=== PATIENT | male | born 1945 | race Caucasian/White ===

== ENCOUNTER 2018-09-28 08:48 | Inpatient (IN) | payer MEDICARE ==
[2018-09-28] MEDS ORDERED: HEPARIN SODIUM,PORCINE 10,000 UNIT/ML 1 ML VIAL IV STA (09:16)
[2018-09-28] MEDS ORDERED: IPRATROPIUM-ALBUTEROL 3 ML NEB INHALATION STA ×2 (09:16→09:19)
[2018-09-28] MEDS ORDERED: HEPARIN SOD,PORK IN 0.45% NACL 25,000 UNIT in 0.45% NACL 1 250ML.BAG IV SCH ×2 (09:30→11:30)
--- NOTE | 2018-09-28 09:43 | ED ---
SOB HPI - General Chief Complaint: Shortness of Breath Stated Complaint: Diff Breathing Time Seen by Provider: 09/28/18 08:59 Source: patient, RN notes reviewed Mode of arrival: wheelchair Limitations: no limitations - History of Present Illness Initial Comments: This is a 72-year-old male with a history of anxiety who states he had the onset 3 days ago after playing golf of not feeling quite right. He started developing exertional dyspnea no palpitations no fevers chills nausea vomiting sweats or other symptoms no peripheral edema reported. He does state that he said recently had a upper respiratory/sinus infection but that has resolved he did see a physician recently was given anti-anxiety medications or not really help he states he also states she's been under a lot of stress recently no other modifying factors he is a former smoker but has never been diagnosed with asthma or COPD. MD Complaint: shortness of breath, anxiety - Related Data Home Medications Medication Instructions Recorded Confirmed Simvastatin [Zocor] 10 mg PO DAILY 04/13/16 09/28/18 ALPRAZolam [Xanax] 0.25 mg PO DAILY 09/28/18 09/28/18 Citalopram Hydrobromide [CeleXA] 20 mg PO DAILY 09/28/18 09/28/18 Melatonin 5 mg PO HS 09/28/18 09/28/18 Allergies Allergy/AdvReac Type Severity Reaction Status Date / Time No Known Allergies Allergy Verified 09/28/18 09:37 Review of Systems ROS Statement: Those systems with pertinent positive or pertinent negative responses have been documented in the HPI. ROS Other: All systems not noted in ROS Statement are negative. Past Medical History Past Medical History: Hyperlipidemia Additional Past Medical History / Comment(s): Prior GIB post colonoscopy and hx of polyps. History of Any Multi-Drug Resistant Organisms: None Reported Past Surgical History: Hernia Repair, Orthopedic Surgery Additional Past Surgical History / Comment(s): Right knee scope x 2, umbilical hernia repair, kinjal cataract. Past Anesthesia/Blood Transfusion Reactions: No Reported Reaction Past Psychological History: No Psychological Hx Reported Smoking Status: Former smoker Past Alcohol Use History: Daily Past Drug Use History: None Reported - Past Family History Mother Family Medical History: No Reported History General Exam - General Exam Comments Initial Comments: This is a well-developed well-nourished awake alert oriented 3 male Limitations: no limitations General appearance: alert, in no apparent distress Head exam: Present: atraumatic, normocephalic, normal inspection Eye exam: Present: normal appearance, PERRL, EOMI. Absent: scleral icterus, conjunctival injection, periorbital swelling ENT exam: Present: normal exam, mucous membranes moist Neck exam: Present: normal inspection. Absent: tenderness, meningismus, lympha denopathy Respiratory exam: Present: rales, decreased breath sounds. Absent: respiratory distress, wheezes, rhonchi, stridor Cardiovascular Exam: Present: tachycardia, irregular rhythm. Absent: systolic murmur, diastolic murmur, rubs, gallop, clicks GI/Abdominal exam: Present: soft, normal bowel sounds. Absent: distended, tenderness, guarding, rebound, rigid Extremities exam: Present: normal inspection, full ROM, normal capillary refill. Absent: tenderness, pedal edema, joint swelling, calf tenderness Back exam: Present: normal inspection Neurological exam: Present: alert, oriented X3, CN II-XII intact Psychiatric exam: Present: normal affect, normal mood Skin exam: Present: warm, dry, intact, normal color. Absent: rash Course Vital Signs 09/28/18 09/28/18 09/28/18 08:53 09:10 09:20 Temperature 98.6 F Pulse Rate 118 H 137 H 152 H Respiratory 18 20 19 Rate Blood Pressure 119/81 O2 Sat by Pulse 94 L 94 L 96 Oximetry 09/28/18 09/28/18 09/28/18 09:30 09:40 09:50 Temperature Pulse Rate 142 H 140 H 144 H Respiratory 23 21 24 Rate Blood Pressure O2 Sat by Pulse 94 L 95 95 Oximetry 09/28/18 09/28/18 09/28/18 10:04 10:25 11:42 Temperature Pulse Rate 144 H 151 H 140 H Respiratory 18 Rate Blood Pressure 118/92 O2 Sat by Pulse 96 Oximetry - Reevaluation(s) Reevaluation #1: 09/28/18 12:21 Patient did get some improvement in his breathing after the DuoNeb was given. Reevaluation #2: 09/28/18 12:22 cardiac monitor technician: Indication for dysrhythmia. Patient noted be atrial fibrill ation with a rapid ventricular response rate 162 was a max today witnessed. No PVCs on my first evaluation Medical Decision Making - Lab Data Result diagrams: 09/28/18 09:15 05/18/19 09:15 Lab Results 09/28/18 09/28/18 09/28/18 Range/Units 09:15 09:15 09:15 WBC 10.2 (3.8-10.6) k/uL RBC 5.03 (4.30-5.90) m/uL Hgb 15.5 (13.0-17.5) gm/dL Hct 47.7 (39.0-53.0) % MCV 94.9 (80.0-100.0) fL MCH 30.9 (25.0-35.0) pg MCHC 32.6 (31.0-37.0) g/dL RDW 14.3 (11.5-15.5) % Plt Count 229 (150-450) k/uL Neutrophils % 84 % Lymphocytes % 7 % Monocytes % 6 % Eosinophils % 1 % Basophils % 0 % Neutrophils # 8.6 H (1.3-7.7) k/uL Lymphocytes # 0.7 L (1.0-4.8) k/uL Monocytes # 0.6 (0-1.0) k/uL Eosinophils # 0.1 (0-0.7) k/uL Basophils # 0.0 (0-0.2) k/uL PT 11.1 (9.0-12.0) sec INR 1.1 (<1.2) APTT 33.3 H (22.0-30.0) sec D-Dimer 1.19 H (<0.60) mg/L FEU Sodium 139 (137-145) mmol/L Potassium 4.4 (3.5-5.1) mmol/L Chloride 108 H (98-107) mmol/L Carbon Dioxide 20 L (22-30) mmol/L Anion Gap 11 mmol/L BUN 14 (9-20) mg/dL Creatinine 0.81 (0.66-1.25) mg/dL Est GFR (CKD-EPI)AfAm >90 (>60 ml/min/1.73 sqM) Est GFR (CKD-EPI)NonAf 89 (>60 ml/min/1.73 sqM) Glucose 226 H (74-99) mg/dL Calcium 9.1 (8.4-10.2) mg/dL Magnesium 1.8 (1.6-2.3) mg/dL Total Bilirubin 1.0 (0.2-1.3) mg/dL AST 31 (17-59) U/L ALT 81 H (21-72) U/L Alkaline Phosphatase 64 (38-126) U/L Creatine Kinase 104 (55-170) U/L Troponin I (0.000-0.034) ng/mL NT-Pro-B Natriuret Pep pg/mL Total Protein 6.4 (6.3-8.2) g/dL Albumin 4.0 (3.5-5.0) g/dL 09/28/18 09/28/18 Range/Units 09:15 09:15 WBC (3.8-10.6) k/uL RBC (4.30-5.90) m/uL Hgb (13.0-17.5) gm/dL Hct (39.0-53.0) % MCV (80.0-100.0) fL MCH (25.0-35.0) pg MCHC (31.0-37.0) g/dL RDW (11.5-15.5) % Plt Count (150-450) k/uL Neutrophils % % Lymphocytes % % Monocytes % % Eosinophils % % Basophils % % Neutrophils # (1.3-7.7) k/uL Lymphocytes # (1.0-4.8) k/uL Monocytes # (0-1.0) k/uL Eosinophils # (0-0.7) k/uL Basophils # (0-0.2) k/uL PT (9.0-12.0) sec INR (<1.2) APTT (22.0-30.0) sec D-Dimer (<0.60) mg/L FEU Sodium (137-145) mmol/L Potassium (3.5-5.1) mmol/L Chloride (98-107) mmol/L Carbon Dioxide (22-30) mmol/L Anion Gap mmol/L BUN (9-20) mg/dL Creatinine (0.66-1.25) mg/dL Est GFR (CKD-EPI)AfAm (>60 ml/min/1.73 sqM) Est GFR (CKD-EPI)NonAf (>60 ml/min/1.73 sqM) Glucose (74-99) mg/dL Calcium (8.4-10.2) mg/dL Magnesium (1.6-2.3) mg/dL Total Bilirubin (0.2-1.3) mg/dL AST (17-59) U/L ALT (21-72) U/L Alkaline Phosphatase (38-126) U/L Creatine Kinase (55-170) U/L Troponin I 0.022 (0.000-0.034) ng/mL NT-Pro-B Natriuret Pep 1510 pg/mL Total Protein (6.3-8.2) g/dL Albumin (3.5-5.0) g/dL - EKG Data -: EKG Interpreted by Me (Atrial fibrillation with a response rate of 1:30 QRS 90 QT since QTC 3:304) - Radiology Data Radiology results: report reviewed (Imaging showed evidence of small pleural effusions and congestive changes.), image reviewed Critical Care Time Critical Care Time: Yes Critical Care Time: 37 minutes of critical care time which includes initial presentation with his tory physical labs x-rays several reevaluation patient responsive therapy discuss with the patient and the findings discussed with Dr. Anderson regarding findings admission orders and documentation of the above Disposition Clinical Impression: Rapid atrial fibrillation, Acute bronchospasm, Pleural effusion, Congestive heart failure (CHF) Disposition: ADMITTED IP TO THIS [facility] Condition: Stable Referrals: Howard Rojas MD [Primary Care Provider] - 1-2 days
--- NOTE | 2018-09-28 09:51 | XR ---
EXAMINATION TYPE: XR chest 2V DATE OF EXAM: 09/28/2018 HISTORY: difficulty breathing. REFERENCE: Previous study dated 04/10/2012. FINDINGS: Lung volumes are prominent. Heart size upper limits of normal. There is blunting of both CP angles. I could not exclude small effusions. I do not see evidence of pneumonia or edema. IMPRESSION: 1. COPD. 2. BORDERLINE CARDIOMEGALY. 3. I COULD NOT EXCLUDE TINY, BILATERAL EFFUSIONS.
[2018-09-28 10:14] LABS: Basophils % (A) 0 %; Eosinophils # (A) 0.1 k/uL (0-0.7); Eosinophils % (A) 1 %; HCT 47.7 % (39.0-53.0); HGB 15.5 gm/dL (13.0-17.5); Lymphocytes # (A) 0.7 k/uL (1.0-4.8); Lymphocytes % (A) 7 %; MCH 30.9 pg (25.0-35.0); MCHC 32.6 g/dL (31.0-37.0); MCV 94.9 fL (80.0-100.0); Mean Platelet Volume 7.9; Monocytes # (A) 0.6 k/uL (0-1.0); Monocytes % (A) 6 %; Neutrophils # (A) 8.6 k/uL (1.3-7.7); Neutrophils % (A) 84 %; Platelet Count 229 k/uL (150-450); RBC 5.03 m/uL (4.30-5.90); RDW 14.3 % (11.5-15.5); WBC 10.2 k/uL (3.8-10.6)
[2018-09-28 10:18] LABS: ALT 81 U/L (21-72); AST 31 U/L (17-59); Alkaline Phosphatase 64 U/L (38-126); Anion Gap 11 mmol/L; Blood Urea Nitrogen 14 mg/dL (9-20); Calcium 9.1 mg/dL (8.4-10.2); Carbon Dioxide 20 mmol/L (22-30); Chloride 108 mmol/L (98-107); Creatine Kinase 104 U/L (55-170); Glucose 226 mg/dL (74-99); Magnesium 1.8 mg/dL (1.6-2.3); Potassium 4.4 mmol/L (3.5-5.1); Sodium 139 mmol/L (137-145); Total Protein 6.4 g/dL (6.3-8.2)
[2018-09-28 10:22] LABS: INR 1.1 (<1.2); Partial Thromboplastin Time 33.3 sec (22.0-30.0); Prothrombin Time 11.1 sec (9.0-12.0)
[2018-09-28 10:54] LABS: D-Dimer 1.19 mg/L FEU (<0.60)
--- NOTE | 2018-09-28 11:52 | CT ---
EXAMINATION TYPE: CT angio chest DATE OF EXAM: 09/28/2018 11:32 AM COMPARISON: None. HISTORY: Difficulty breathing. CT DLP: 440.5 mGycm Automated exposure control for dose reduction was used. CONTRAST: CTA scan of the thorax is performed with IV Contrast, patient injected with 81ml mL of Isovue 370, pu lmonary embolism protocol. . FINDINGS: There are bilateral effusions, greater on the right than the left. There is associated rela xation atelectasis present bilaterally. There is no significant axillary, internal mammary, is down hilar lymphadenopathy. There is some mediastinal fluid of uncertain etiology. There is no evidence of pulmonary embolus. The aorta is normal in caliber. The heart is mildly enlarged. There is no pericardial fluid. Visualized portions of the upper abdomen are unremarkable. There is hypertrophic spondylosis within the dorsal spine. IMPRESSION: 1. THIS EXAMINATION IS NEGATIVE FOR PULMONARY EMBOLUS. 2. MODERATE BILATERAL EFFUSIONS, GREATER ON THE RIGHT THAN THE LEFT. 3. SMALL AMOUNT OF MEDIASTINAL FLUID OF UNCERTAIN ETIOLOGY. 4. DEGENERATIVE CHANGES WITHIN THE SPINE.
[2018-09-28] MEDS ORDERED: FUROSEMIDE 10 MG/ML 4 ML VIAL IV STA (12:30)
[2018-09-28] MEDS ORDERED: FUROSEMIDE 10 MG/ML 4 ML VIAL IV SCH (12:30)
[2018-09-28] MEDS ORDERED: DILTIAZEM DRIP BOLUS FROM BAG 1 MG SOLN IV ONE (12:31)
[2018-09-28] MEDS: DILTIAZEM 125 MG in SODIUM CHLORIDE 0.9% 100 ML IV SCH (13:19)
[2018-09-28] MEDS: IPRATROPIUM-ALBUTEROL 3 ML NEB INHALATION SCH ×2 (15:21→19:50)
[2018-09-28] MEDS: INSULIN ASPART (NovoLOG) 100 UNIT/ML VIAL SQ SCH ×2 (18:09→21:21)
[2018-09-28] MEDS: RIVAROXABAN 20 MG TAB PO SCH (18:17)
--- NOTE | 2018-09-28 18:57 | HP ---
HISTORY AND PHYSICAL DATE OF ADMISSION: 09/28/2018 PRESENTING COMPLAINT: Short of breath. HISTORY OF PRESENTING COMPLAINT: A very pleasant 72-year-old patient of Dr. Rojas. Chronic stable medical conditions include hyperlipidemia, depression, anxiety, insomnia. The patient thinks he has been short winded for a few days coming on, but noticed that he was playing golf on Sunday. He was on the 2nd hole. He felt he could not catch his breath. He told his golf partner he wanted to hold off but they decided to continue. He was able to complete his game. That night he was not able to sleep, really tossing, turning in bed. Progressively he has continued to get more and more short of breath. Also felt some palpitation, dizzy, lightheadedness. The patient is also very anxious because his has got pulmonary fibrosis and he is dealing with the same and decided to finally present to the ER. There was no chest pain. Some ankle edema. The patient has been getting easily short-winded. Some orthopnea present. In the ER, found to be in atrial fibrillation, rapid ventricular rate. Given IV Lasix. Put on a Cardizem drip. Cardiology was consulted. No prior cardiac history. REVIEW OF SYSTEMS: CONSTITUTIONAL: Tired. HEENT: None. RESPIRATORY: As above. CARDIOVASCULAR as above. GASTROINTESTINAL: None. GENITOURINARY: None. MUSCULOSKELETAL: None. DERMATOLOGICAL: None. HEMATOLOGICAL: None. LYMPHATICS: None. PSYCHIATRY none. NEUROLOGICAL: None. PAST MEDICAL HISTORY: Depression, anxiety, insomnia, hyperlipidemia. PAST SURGICAL HISTORY: Hernia repair, right knee scope x2, umbilical hernia repair, bilateral cataract surgery. SOCIAL HISTORY: Smoked a pack a day for close to 40 years, stopped 14 years ago. Has 2 drinks a day. The patient is now retired. 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 . FAMILY HISTORY: Reviewed. Noncontributory to presentation. HOME MEDICATIONS: 1. Zocor 10 mg daily. 2. Melatonin 5 mg q.h.s. 3. Celexa 20 mg p.o. daily. 4. Xanax 0.25 p.o. daily. ALLERGIES: None. PHYSICAL EXAMINATION: VITAL SIGNS: Vital signs on presentation: Temperature 98.6, pulse 118, respiration 18, blood pressure 109/81, pulse ox 94 percent on room air. GENERAL APPEARANCE: Average build, lying in bed. Anxious-appearing. EYES: Pupils are equal. Conjunctivae normal. HEENT: External appearance of nose and ears normal. Oral cavity normal. NECK: JVD unable to assess. Mass not palpable. RESPIRATORY: Effort increased. LUNGS: Decreased breath sounds at the bases. CARDIOVASCULAR: Heart sounds irregular. No edema. ABDOMEN: Soft, nontender. Liver and spleen not palpable. LYMPHATICS: No lymph nodes palpable in the neck and axilla. PSYCHIATRY: Alert and oriented x3. Mood and affect normal. NEUROLOGICAL: Pupils equal. Cranial nerves grossly intact. Power and sensation grossly intact. INVESTIGATIONS: White count 10.2. Potassium 4.4. BUN and creatinine is normal. ProBNP 1510. EKG tracing personally reviewed by me shows atrial flutter with a variable rate. Chest CTA negative for PE, moderate bilateral pleural effusions. Chest x-ray film personally reviewed by me shows cardiomegaly, venous prominence, bilateral pleural effusion. ASSESSMENT: 1. New onset of atrial flutter with a rate uncontrolled causing secondary congestive heart failure. 2. Acute congestive heart failure, possibly presented with rapid atrial fibrillation, cannot rule out underlying LV dysfunction. 3. Hyperlipidemia. 4. Chronic insomnia. 5. Anxiety and depression, not otherwise specified. PLAN: Patient is put on IV Cardizem drip from the ER. Also Dr. Esquivel did add beta asia and aspirin. 2D echocardiogram done. Care was discussed with the patient. Questions were answered. Copy to Dr. Rojas. MMODL / CARRINGTONN: [id number] /
[2018-09-28] MEDS: METOPROLOL TARTRATE 25 MG TAB PO SCH (19:39)
[2018-09-28] MEDS: MELATONIN 5 MG TABLET PO SCH (19:39)
[2018-09-28] MEDS: FUROSEMIDE 10 MG/ML 4 ML VIAL IV SCH (19:40)
--- NOTE | 2018-09-28 19:42 | CONS ---
CONSULTATION Mr. Negron is a 72-year-old male followed by Dr. Rojas with a history of hyperlipidemia, who presented to the emergency room with symptoms of progressive fatigue and dyspnea that had been going on for the last 3 days. He noted the symptoms the first time when he was playing golf, but they persisted and because of that he came into the emergency room. He was noted to be in atrial fibrillation with rapid ventricular response. The patient did not feel the palpitation. He has no chest pain. He has no dizziness or syncope. He has noted some peripheral edema. No clear PND. No orthopnea. He has no prior cardiac history. His coronary risk factors are remarkable for remote history of smoking, hyperlipidemia. He is not hypertensive, nondiabetic. MEDICATIONS: His medications include simvastatin 10 mg daily, Melatonin, Celexa and Zantac. SOCIAL HISTORY: He drinks alcohol on a daily basis. REVIEW OF SYSTEMS: RESPIRATORY system: He has the dyspnea on exertion. No recent wheezing or cough. GI system: No recent GI bleeding. No peptic ulcer disease. system: No dysuria or hematuria. NERVOUS SYSTEM: No stroke or seizure. PHYSICAL EXAMINATION: GENERAL: He is a 72-year-old male, alert, oriented, in no apparent distress. VITAL SIGNS: Blood pressure 118/60 with a heart rate in the 120s. HEAD: Normocephalic. Eyes: Sclerae nonicteric. NECK: Good upstroke. No bruit. No jugular venous distention. LUNGS: Clear to auscultation. HEART: Irregularly irregular, S1, S2. No S3. No rub. ABDOMEN: Soft, nontender. Positive bowel sounds no megaly. EXTREMITIES: +1 edema bilaterally. LAB DATA: With a BUN and creatinine of 14 and 0.8. NT proBNP of 1510. Troponin 0.022. Hemoglobin of 15.5. The EKG revealed atrial fibrillation with rapid ventricular response and nonspecific ST-T wave changes. His chest x-ray shows effusion that were documented on the CT scan. There was no evidence of pulmonary embolism. IMPRESSION: 1. Atrial fibrillation, appears to be new onset are with symptoms of dyspnea and possible congestive heart failure of unclear systolic function. 2. History of hyperlipidemia. RECOMMENDATION: I will start him on oral anticoagulation. I will obtain echocardiogram with Doppler. I will add beta asia to his regimen. We will continue on the diuretics. Follow his cardiac enzymes and depending on his response, further recommendations will be made. Thank you for this consult. We will follow with you. MMODL / IJN: [id number] /
[2018-09-28 20:29] LABS: Hemoglobin A1C 5.8 % (4.0-6.0)
[2018-09-28 20:46] LABS: Glucose,Whole Blood 160 mg/dL (75-99)
[2018-09-29 05:54] LABS: Glucose,Whole Blood 128 mg/dL (75-99)
[2018-09-29] MEDS: INSULIN ASPART (NovoLOG) 100 UNIT/ML VIAL SQ SCH ×4 (05:55→20:57)
[2018-09-29 07:14] LABS: Basophils # (A) 0.1 k/uL (0-0.2); Basophils % (A) 1 %; Eosinophils # (A) 0.2 k/uL (0-0.7); Eosinophils % (A) 3 %; HCT 44.2 % (39.0-53.0); HGB 14.2 gm/dL (13.0-17.5); Lymphocytes # (A) 1.1 k/uL (1.0-4.8); Lymphocytes % (A) 15 %; MCH 30.7 pg (25.0-35.0); MCHC 32.2 g/dL (31.0-37.0); MCV 95.3 fL (80.0-100.0); Mean Platelet Volume 7.4; Monocytes # (A) 0.5 k/uL (0-1.0); Monocytes % (A) 7 %; Neutrophils # (A) 5.3 k/uL (1.3-7.7); Neutrophils % (A) 72 %; Platelet Count 194 k/uL (150-450); RBC 4.63 m/uL (4.30-5.90); RDW 14.3 % (11.5-15.5); WBC 7.4 k/uL (3.8-10.6)
[2018-09-29 07:28] LABS: Calcium 8.8 mg/dL (8.4-10.2); Potassium 3.7 mmol/L (3.5-5.1)
[2018-09-29] MEDS: ALPRAZolam 0.25 MG TAB PO SCH (08:33)
[2018-09-29] MEDS: ATORVASTATIN 10 MG TAB PO SCH (08:34)
[2018-09-29] MEDS: CITALOPRAM HYDROBROMIDE 20 MG TAB PO SCH (08:34)
[2018-09-29] MEDS: METOPROLOL TARTRATE 25 MG TAB PO SCH (08:34)
[2018-09-29] MEDS: FUROSEMIDE 10 MG/ML 4 ML VIAL IV SCH (08:35)
[2018-09-29] MEDS: IPRATROPIUM-ALBUTEROL 3 ML NEB INHALATION SCH ×3 (08:52→20:10)
--- NOTE | 2018-09-29 11:35 | PN ---
PROGRESS NOTE Mr. Negron is a 72-year-old male who presented with symptoms of progressive dyspnea and fatigue, was noted to be in atrial fibrillation with rapid ventricular response. He is feeling better today, but he still feels tired. He has no chest pain. No dizziness. No passing out. He continues to be in atrial fibrillation with episode of rapid ventricular response. He continues to be on Xarelto 20 mg daily, metoprolol tartrate 25 mg twice a day, Lasix 40 mg IV q.12 hours. PHYSICAL EXAMINATION: Blood pressure 114/70 with a heart rate alternating between the 60s and the one teens. LUNGS: Clear. HEART: Irregularly irregular, S1, S2. No S3 with no rub. ABDOMEN: Soft, nontender. EXTREMITIES: No edema. LAB DATA: Lab data revealed BUN and creatinine 14 and 1.01, potassium 3.7, hemoglobin of 14.2. IMPRESSION: 1. Atrial fibrillation, appears to be recent onset. 2. Symptoms of dyspnea with some fluid overload, probably diastolic dysfunction heart failure related to the atrial fibrillation. 3. Hyperlipidemia. RECOMMENDATION: I will increase the dose of beta asia. Stop the IV Lasix. We will obtain echocardiogram with Doppler. Increase his activity. If he remains stable, he may be able to be discharged home tomorrow. If he remains in atrial fibrillation, then he will be admitted electively to undergo cardioversion. ANGE / CARRINGTONN: [id number] /
[2018-09-29 12:02] LABS: Glucose,Whole Blood 125 mg/dL (75-99)
[2018-09-29] MEDS ORDERED: ASPIRIN 325 MG TAB PO SCH (12:29)
--- NOTE | 2018-09-29 13:54 | ECHOF ---
Referral Reason:afib MEASUREMENTS -------- HEIGHT: 182.9 cm WEIGHT: 90.3 kg BP: 114/75 RVIDd: 3.3 cm (< 3.3) IVSd: 1.1 cm (0.6 - 1.1) LVIDd: 5.8 cm (3.9 - 5.3) LVPWd: 1.2 cm (0.6 - 1.1) IVSs: 1.5 cm LVIDs: 5.3 cm LVPWs: 1.4 cm LA Diam: 4.2 cm (2.7 - 3.8) LAESV Index (A-L): 30.64 ml/m Ao Diam: 3.4 cm (2.0 - 3.7) AV Cusp: 2.2 cm (1.5 - 2.6) MV EXCURSION: 16.312 mm (> 18.000) MV EF SLOPE: 119 mm/s (70 - 150) EPSS: 1.4 cm RAP: 5.00 mmHg RVSP: 45.06 mmHg FINDINGS -------- Atrial fibrillation. This was a technically adequate study. The left ventricular size is normal. There is borderline concentric left ventricular hypertrophy. There is severe global hypokinesis of LV . Overall left ventricular systolic function is severely impaired with, an EF between 20 - 25 %. The right ventricle is mildly enlarged. LA is midly dilated 29-33ml/m2. The right atrium is normal in size. Interatrial and interventricular septum intact. The aortic valve is trileaflet, and appears structurally normal. No aortic stenosis or regurgitation. The mitral valve leaflets are mildly thickened. Moderate mitral regurgitation is present. Moderate tricuspid regurgitation present. There is mild pulmonary hypertension. The right ventric ular systolic pressure, as measured by Doppler, is 45.06mmHg. Trace/mild (physiologic) pulmonic regurgitation. The aortic root size is normal. Normal inferior vena cava with normal inspiratory collapse consistent with estimated right atrial pre ssure of 5 mmHg. The inferior vena cava is mildly dilated. There is no pericardial effusion. CONCLUSIONS -------- 1. Atrial fibrillation. 2. This was a technically adequate study. 3. The left ventricular size is normal. 4. There is borderline concentric left ventricular hypertrophy. 5. There is severe global hypokinesis of LV . 6. Overall left ventricular systolic function is severely impaired with, an EF between 20 - 25 %. 7. The right ventricle is mildly enlarged. 8. LA is midly dilated 29-33ml/m2. 9. Interatrial and interventricular septum intact. 10. The aortic valve is trileaflet, and appears structurally normal. No aortic stenosis or regurgitat ion. 11. The mitral valve leaflets are mildly thickened. 12. Moderate mitral regurgitation is present. 13. Moderate tricuspid regurgitation present. 14. There is mild pulmonary hypertension. 15. Trace/mild (physiologic) pulmonic regurgitation. 16. The aortic root size is normal. 17. Normal inferior vena cava with normal inspiratory collapse consistent with estimated right atrial pressure of 5 mmHg. 18. The inferior vena cava is mildly dilated. 19. There is no pericardial effusion. CLAY DIGGER: Taina Biswas RDCS
[2018-09-29] MEDS: RIVAROXABAN 20 MG TAB PO SCH (17:09)
[2018-09-29] MEDS: SPIRONOLACTONE 25 MG TAB PO SCH (17:09)
[2018-09-29 17:10] LABS: Glucose,Whole Blood 132 mg/dL (75-99)
[2018-09-29] MEDS: DILTIAZEM 125 MG in SODIUM CHLORIDE 0.9% 100 ML IV SCH ×2 (19:38→19:39)
[2018-09-29] MEDS: FUROSEMIDE 20 MG TAB PO SCH (19:39)
[2018-09-29] MEDS: LISINOPRIL 5 MG TAB PO SCH (19:39)
[2018-09-29] MEDS: METOPROLOL TARTRATE 50 MG TAB PO SCH (19:39)
[2018-09-29 20:43] LABS: Glucose,Whole Blood 149 mg/dL (75-99)
[2018-09-29] MEDS: MELATONIN 5 MG TABLET PO SCH (20:58)
--- NOTE | 2018-09-29 22:02 | PN ---
PROGRESS NOTE DATE OF SERVICE: September 29, 2018. PRESENTING COMPLAINT: Short of breath. INTERVAL HISTORY: Patient admitted with atrial flutter and CHF exacerbation. Heart rate somewhat better controlled today. Breathing somewhat better. Getting IV Lasix. Breathing is somewhat better. REVIEW OF SYSTEMS: Done for constitutional, cardiovascular, GI, pulmonary and relevant findings as above. CURRENT MEDICATIONS: Reviewed that include IV Cardizem drip, Lopressor 50 mg b.i.d. Lasix was switched to p.o. his morning by Cardiology. PHYSICAL EXAMINATION: VITAL SIGNS: Temperature 98, pulse 86, respiratory rate 18, blood pressure 120/75, pulse ox 98% on room air. GENERAL APPEARANCE: Sitting up, more comfortable. EYES: Pupils are equal. Conjunctivae normal. NECK: JVD unable to assess. Mass not palpable. RESPIRATORY: Effort normal. LUNGS: Decreased breath sounds. CARDIOVASCULAR: Heart sounds irregular. No edema. ABDOMEN: Soft, nontender. Liver and spleen not palpable. PSYCHIATRY: Alert and oriented x3. Mood and affect normal. INVESTIGATIONS: White count 7.4, hemoglobin 14.2, potassium 3.7. BUN and creatinine is normal. Accu- Cheks are noted. 2D echo shows EF of 20-25 percent and moderate mitral, tricuspid regurgitation. ASSESSMENT: 1. New onset atrial flutter, rate controlled, present on admission. 2. Acute congestive heart failure from systolic dysfunction, EF 20-25 percent. 3. Hyperlipidemia. 4. Chronic insomnia. 5. Anxiety and depression, not otherwise specified. PLAN: We will add Aldactone. The patient is already on Xarelto. Hopefully, patient can be taken off the Cardizem drip. I did discuss with the patient to restrict fluids. The patient will need a cardiac catheterization at some point to rule out ischemic heart disease. MMODL / IJN: [id number] /
[2018-09-30] MEDS: IPRATROPIUM-ALBUTEROL 3 ML NEB INHALATION SCH ×4 (01:08→19:31)
[2018-09-30 06:27] LABS: Glucose,Whole Blood 130 mg/dL (75-99)
[2018-09-30] MEDS: INSULIN ASPART (NovoLOG) 100 UNIT/ML VIAL SQ SCH ×4 (06:28→20:50)
[2018-09-30 07:21] LABS: Anion Gap 8 mmol/L; Blood Urea Nitrogen 13 mg/dL (9-20); Calcium 9.4 mg/dL (8.4-10.2); Carbon Dioxide 24 mmol/L (22-30); Chloride 107 mmol/L (98-107); Glucose 135 mg/dL (74-99); Potassium 4.2 mmol/L (3.5-5.1); Sodium 139 mmol/L (137-145)
[2018-09-30] MEDS ORDERED: ASPIRIN 81 MG PO SCH (09:00)
[2018-09-30] MEDS ORDERED: ALPRAZolam 0.25 MG TAB PO PRN (09:43)
[2018-09-30] MEDS ORDERED: SODIUM CHLORIDE 0.9% 1,000 ML in EMPTY BAG 1 BAG IV ONE (09:43)
[2018-09-30] MEDS ORDERED: NITROGLYCERIN SL TABS 0.4 MG TAB SUBLINGUAL PRN (09:43)
[2018-09-30] MEDS ORDERED: ALPRAZolam 0.5 MG TAB PO PRN (09:43)
[2018-09-30] MEDS ORDERED: ATORVASTATIN 80 MG TAB PO STA (09:48)
[2018-09-30] MEDS ORDERED: ASPIRIN 325 MG TAB PO STA (09:48)
[2018-09-30] MEDS: CITALOPRAM HYDROBROMIDE 20 MG TAB PO SCH (09:54)
[2018-09-30] MEDS: FUROSEMIDE 20 MG TAB PO SCH ×2 (09:54→20:49)
[2018-09-30] MEDS: ALPRAZolam 0.25 MG TAB PO SCH (09:54)
[2018-09-30] MEDS: LISINOPRIL 5 MG TAB PO SCH ×2 (09:55→20:49)
[2018-09-30] MEDS: SPIRONOLACTONE 25 MG TAB PO SCH (09:55)
--- NOTE | 2018-09-30 10:02 | PN ---
PROGRESS NOTE Mr. Negron is a 72-year-old male who presented with symptoms of progressive dyspnea and evidence of atrial fibrillation. He is feeling better this morning. He is ambulating, denying any symptoms of chest pain. Denies any dizziness or palpitation. Denies any nausea. He had an echocardiogram yesterday that revealed a severely impaired left ventricular systolic function with global hypokinesis with evidence of moderate mitral and tricuspid regurgitation. Talking to the patient further, he says for the last few months, he has been feeling more tired and he has attributed that to fatigue and age. He continues to be on aspirin 81 mg daily, Lipitor 10 mg daily, IV Cardizem, furosemide 20 mg twice a day, lisinopril 5 mg twice a day, metoprolol tartrate 50 mg twice a day, and Xarelto 20 mg daily and spironolactone 25 mg daily. PHYSICAL EXAMINATION: Blood pressure 112/70 with a heart rate in the 90s. LUNGS: Clear. HEART: Irregular, regular, S1, S2. No S3. No rub. ABDOMEN: Soft, nontender. No organomegaly. EXTREMITIES: No edema. LAB DATA: Revealed a BUN and creatinine 13 and 0.96, potassium 4.2. IMPRESSION: 1. Cardiomyopathy of unclear etiology, appears to be nonischemic cardiomyopathy. 2. Atrial fibrillation of probably recent onset. 3. Diabetes mellitus. 4. Hyperlipidemia. RECOMMENDATION: I will hold his anticoagulation at this time. I have discussed with him the issue of cardiac catheterization, the rationale behind that. He is in agreement. I will tentatively schedule him in 48 hours, and depending on the results of the testing, the patient may require a NENO guided cardioversion. MMODL / IJN: [id number] /
[2018-09-30 11:52] LABS: Glucose,Whole Blood 129 mg/dL (75-99)
[2018-09-30] MEDS ORDERED: METOPROLOL TARTRATE 50 MG TAB PO STA (12:21)
[2018-09-30] MEDS: ATORVASTATIN 10 MG TAB PO SCH (14:11)
[2018-09-30] MEDS: METOPROLOL TARTRATE 50 MG TAB PO SCH ×3 (14:11→20:49)
[2018-09-30 16:46] LABS: Glucose,Whole Blood 131 mg/dL (75-99)
[2018-09-30] MEDS ORDERED: IPRATROPIUM-ALBUTEROL 3 ML NEB INHALATION PRN (20:18)
[2018-09-30 20:34] LABS: Glucose,Whole Blood 138 mg/dL (75-99)
[2018-09-30] MEDS: MELATONIN 5 MG TABLET PO SCH (20:49)
--- NOTE | 2018-09-30 23:53 | PN ---
PROGRESS NOTE DATE OF SERVICE: 09/30/2018 PRESENTING COMPLAINT: Tired. INTERVAL HISTORY: Patient admitted with atrial flutter and CHF exacerbation. Heart rate is slightly better controlled. The patient does feel a bit tired. No chest pain. REVIEW OF SYSTEMS: Done for constitutional, cardiovascular, GI, pulmonary; relevant findings as above. CURRENT MEDICATIONS: Reviewed that include p.o. Lasix , Aldactone and Lopressor 50 mg t.i.d. EXAMINATION: VITAL SIGNS: Temperature 98.1, pulse 110, respiration 18, blood pressure 102/69, pulse ox 95% on room air. GENERAL APPEARANCE: Lying in bed, a bit tired-appearing. EYES: Pupils equal. Conjunctivae normal. NECK: JVD unable to assess. Mass not palpable. RESPIRATORY: Effort normal. LUNGS: Decreased breath sounds. CARDIOVASCULAR: Heart sounds irregular. No edema. ABDOMEN: Soft, nontender. Liver and spleen not palpable. PSYCHIATRY: Alert and oriented x3. Mood and affect normal. INVESTIGATIONS: Telemetry shows heart rate is in one teens. Potassium 4.2. BUN creatinine is normal. Accu-Cheks are noted. ASSESSMENT: 1. New onset atrial flutter, rate uncontrolled on presentation. 2. Acute congestive heart failure from systolic dysfunction EF 20-25 percent. 3. Hyperlipidemia. 4. Chronic insomnia. 5. Anxiety and depression, not otherwise specified. PLAN: Continue current medication and treatment plan. The patient's dose of Lopressor was increased. Cardizem has been taken off. Cardiology is planning for a cardiac catheterization. The patient may get a NENO in the interim. Care was discussed with the patient. MMODL / IJN: [id number] /
[2018-10-01 06:07] LABS: Glucose,Whole Blood 105 mg/dL (75-99)
[2018-10-01] MEDS: INSULIN ASPART (NovoLOG) 100 UNIT/ML VIAL SQ SCH ×4 (06:25→21:13)
[2018-10-01 07:07] LABS: Calcium 9.6 mg/dL (8.4-10.2); Potassium 4.6 mmol/L (3.5-5.1)
[2018-10-01] MEDS: IPRATROPIUM-ALBUTEROL 3 ML NEB INHALATION SCH ×3 (07:26→19:38)
[2018-10-01] MEDS: ALPRAZolam 0.25 MG TAB PO SCH (08:57)
[2018-10-01] MEDS: SPIRONOLACTONE 25 MG TAB PO SCH (08:57)
[2018-10-01] MEDS: METOPROLOL TARTRATE 50 MG TAB PO SCH ×3 (08:58→20:52)
[2018-10-01] MEDS: FUROSEMIDE 20 MG TAB PO SCH ×2 (08:58→20:52)
[2018-10-01] MEDS: LISINOPRIL 5 MG TAB PO SCH ×2 (08:58→20:52)
[2018-10-01] MEDS: CITALOPRAM HYDROBROMIDE 20 MG TAB PO SCH (08:58)
[2018-10-01] MEDS ORDERED: ASPIRIN 81 MG PO SCH (09:00)
[2018-10-01] MEDS ORDERED: ATORVASTATIN 20 MG TAB PO SCH (09:00)
--- NOTE | 2018-10-01 10:27 | CDI ---
Documentation Clarification Form Date: 10/01/2018 10:18:46 AM From: Edda PuriDoe [facility], CCDS Admit Date: 09/28/2018 12:28:00 PM Patient Name: Justin Negron Visit Number: [id number] Discharge Date: ATTENTION: The Clinical Documentation Specialists (CDI) and [employer] Coding Staff appreciate your assistance in clarifying documentation. Please respond to the clarification below the line at the bottom and electronically sign. The CDI & [employer] Coding staff will review the response and follow-up if needed. Please note: Queries are made part of the Legal Health Record. If you have any questions, please contact the author of this message via ITS. Dr. Jon Anderson: Atrial Flutter is documented in the History & Physical and subsequent progress notes without further specificity. History/Risk factors: Hyperlipidemia, GI bleed post colonoscopy & polyps, Anxiety, former smoker. Clinical Indicators: Presented with SOB, occurred while playing golf, anxiety lately over 's illness. EKG #1: R 130 Atrial fibrillation w/RVR. EKG #2: R 108 Atrial fibrillation w/RVR w/PACs. HR: 118 - 137 - 152 - 54 - 104 - 52 - 118 ECHO: Systolic severely impaired, EF 20-25%, right ventricle enlarged, Mod MR/TR, mild pulmonary hypertension. CXR: COPD, borderline cardiomegaly, Could not exclude tiny, bilateral effusions. Treatment: INH, Albuterol, IV Heparin drip, IV Lasix, IV Cardizem drip bolus, aspirin, Nitro sl, Lipitor, Lopressor. Consults: Cardiology In your professional opinion, in order to capture the severity of condition; can you please clarify the type of Atrial Flutter if known? Typical/Type I Atypical/Type II Other, please specify Unable to determine (Last Revision: August 2017) uable to determine MTDD
--- NOTE | 2018-10-01 10:31 | CDI ---
Documentation Clarification Form Date: 10/01/2018 10:27:24 AM From: Edda PuriDoeFEDE, CCDS Admit Date: 09/28/2018 12:28:00 PM Patient Name: Justin Negron Visit Number: [id number] Discharge Date: ATTENTION: The Clinical Documentation Specialists (CDI) and [facility] Coding Staff appreciate your assistance in clarifying documentation. Please respond to the clarification below the line at the bottom and electronically sign. The CDI & [facility] Coding staff will review the response and follow-up if needed. Please note: Queries are made part of the Legal Health Record. If you have any questions, please contact the author of this message via ITS. Dr. Hernando Esquivel: Atrial Fibrillation is documented in the cardiology consult as atrial fibrillation with RVR. Atrial Flutter is documented in the History & Physical and subsequent progress notes without further specificity. History/Risk factors: Hyperlipidemia, GI bleed post colonoscopy & polyps, Anxiety, former smoker. Clinical Indicators: Presented with SOB, occurred while playing golf, anxiety lately over 's illness. EKG #1: R 130 Atrial fibrillation w/RVR. EKG #2: R 108 Atrial fibrillation w/RVR w/PACs. HR: 118 - 137 - 152 - 54 - 104 - 52 - 118 ECHO: Systolic severely impaired, EF 20-25%, right ventricle enlarged, Mod MR/TR, mild pulmonary hypertension. CXR: COPD, borderline cardiomegaly, Could not exclude tiny, bilateral effusions. Treatment: INH, Albuterol, IV Heparin drip, IV Lasix, IV Cardizem drip bolus, aspirin, Nitro sl, Lipitor, Lopressor. Consults: Cardiology In your professional opinion, can you please clarify the type of Atrial Fibrillation, if known? Chronic/Permanent Paroxysmal xxxxx Persistent Other, please specify Unable to determine (Last Revision: August 2017) MTDD
[2018-10-01 12:01] LABS: Glucose,Whole Blood 118 mg/dL (75-99)
--- NOTE | 2018-10-01 14:48 | P.PN ---
Subjective Progress Note Date: 10/01/18 Is is a 72-year-old gentleman with history of hyperlipidemia who presented to the hospital with symptoms of progressive fatigue and dyspnea that would have been going on for 3 days prior to his admission here. Patient was noted on arrival here to be in atrial fibrillation with a rapid ventricular response. He also had an echocardiogram with Doppler study performed which revealed a reduced LV function. His xarelto was placed on hold yesterday and patient was advised tomorrow to undergo cardiac catheterization. The risks and the benefits were explained to the patient in detail. Overall the patient feels well, he denies any palpitations, no shortness of breath, no chest discomfort or dizziness. Heart rate maintaining in the 70s to 80s. Just before lunch time, it was noted that his heart rate did go up into the 06[birth year]03[birth year]1929 range, and his dose of beta asia was given early. Objective - Vital Signs Vital signs: Vital Signs Temp 97.9 F 10/01/18 12:00 Pulse 71 10/01/18 12:45 Resp 16 10/01/18 12:45 BP 113/68 10/01/18 12:00 Pulse Ox 97 10/01/18 12:00 Intake & Output 09/30/18 10/01/18 10/01/18 18:59 06:59 18:59 Intake Total 636 20 600 Balance 636 20 600 Weight 93.5 kg Intake: IV 20 Invasive Line 1 10 Invasive Line 2 10 Oral 636 600 Other: Voiding Method Toilet Toilet Urinal Urinal # Voids 2 1 - Exam PHYSICAL EXAMINATION: GENERAL: 72-year-old gentleman in no acute distress at the time of my examination HEENT: Head is atraumatic, normocephalic. Pupils equal, round. Sclera anicteric. Conjunctiva are clear. Mucous membranes of the mouth are moist. Neck is supple. There is no elevated jugular venous pressure. No carotid bruit is heard. HEART EXAMINATION: Heart S1 and S2 irregularly irregular CHEST EXAMINATION: Lungs are clear to auscultation and precussion. No chest wall tenderness is noted on palpation or with deep breathing. ABDOMEN: Soft, nontender. Bowel sounds are heard. No organomegaly noted. EXTREMITIES: 2+ peripheral pulses with no evidence of peripheral edema and no calf tenderness noted. NEUROLOGIC patient is awake, alert and oriented X3. . - Labs CBC & Chem 7: 09/29/18 06:37 10/01/18 06:11 Labs: Abnormal Lab Results - Last 24 Hours (Table) 09/30/18 09/30/18 10/01/18 Range/Units 16:36 20:34 06:06 Glucose (74-99) mg/dL POC Glucose (mg/dL) 131 H 138 H 105 H (75-99) mg/dL 10/01/18 10/01/18 Range/Units 06:11 11:57 Glucose 107 H (74-99) mg/dL POC Glucose (mg/dL) 118 H (75-99) mg/dL Assessment and Plan Plan: Assessment and plan 1 chronic persistent atrial fibrillation, new onset #2 systolic congestive heart failure acute on chronic #3 hyperlipidemia #4 diabetes #5 Cardiomyopathy of unclear etiology, appears to be a nonischemic cardiomyopathy Plan Patient is scheduled tomorrow to undergo cardiac catheterization, the risks and the benefits as well as alternative therapies were explained to him in detail , procedure protocol along with sedation/analgesia as well as necessary blood product administration of indicated as a pertain to the patient were discussed. Depending on the results of the testing, patient may require a NENO guided cardioversion as well. DNP note has been reviewed, I agree with a documented findings and plan of care. Patient was seen and examined.
[2018-10-01 17:00] LABS: Glucose,Whole Blood 144 mg/dL (75-99)
[2018-10-01] MEDS: MELATONIN 5 MG TABLET PO SCH (20:52)
[2018-10-01] MEDS ORDERED: SODIUM CHLORIDE 0.9% 1,000 ML in EMPTY BAG 1 BAG IV ONE (21:00)
[2018-10-01 21:11] LABS: Glucose,Whole Blood 145 mg/dL (75-99)
--- NOTE | 2018-10-02 05:36 | PN ---
PROGRESS NOTE DATE OF SERVICE: 10/01/2018 PRESENTING COMPLAINT: Tired. INTERVAL HISTORY: Patient admitted with atrial flutter, CHF exacerbation. Heart rate has been a bit up and down. Cardiology is planning for a cardiac cath tomorrow. REVIEW OF SYSTEMS: Done for constitutional, cardiovascular, GI, pulmonary; relevant findings as above. CURRENT MEDICATIONS: Current medications are reviewed include DuoNeb, Celexa, p.o. Lasix, Lopressor 50 mg t.i.d. PHYSICAL EXAMINATION: On examination, afebrile, pulse 71, respiration 16, heart rate is up to 120s, blood pressure 102/73, pulse ox 94% on room air. GENERAL APPEARANCE: Lying in bed, tired. EYES: Pupils equal. Conjunctivae normal. NECK: JVD unable to assess. Mass not palpable. RESPIRATORY: Effort normal. LUNGS: Diminished breath sounds. CARDIOVASCULAR: Heart sounds irregular. No edema. ABDOMEN: Soft, nontender. Liver and spleen not palpable. PSYCHIATRY: Alert and oriented x3. Mood and affect normal. INVESTIGATIONS: BUN and creatinine normal. Accu-Cheks are noted. ASSESSMENT: 1. New onset atrial flutter, rate uncontrolled. 2. Acute congestive heart failure from systolic dysfunction, ejection fraction 20% to 25%. 3. Hyperlipidemia. 4. Chronic insomnia. 5. Anxiety, depression, not otherwise specified. 6. Pending cardiac catheterization to rule out underlying coronary artery disease. PLAN: Continue current medication and treatment plan. Care was discussed with the patient. Will follow. MMODL / IJN: [id number] /
[2018-10-02] MEDS ORDERED: ASPIRIN 325 MG TAB PO ONE (06:00)
[2018-10-02] MEDS ORDERED: ATORVASTATIN 80 MG TAB PO ONE (06:00)
[2018-10-02] MEDS: INSULIN ASPART (NovoLOG) 100 UNIT/ML VIAL SQ SCH ×4 (06:25→21:30)
[2018-10-02] MEDS: LISINOPRIL 5 MG TAB PO SCH ×2 (06:25→21:27)
[2018-10-02] MEDS: CITALOPRAM HYDROBROMIDE 20 MG TAB PO SCH (06:25)
[2018-10-02] MEDS: METOPROLOL TARTRATE 50 MG TAB PO SCH ×3 (06:25→21:27)
[2018-10-02] MEDS: ALPRAZolam 0.25 MG TAB PO SCH (06:25)
[2018-10-02 06:26] LABS: Glucose,Whole Blood 137 mg/dL (75-99)
[2018-10-02] MEDS: IPRATROPIUM-ALBUTEROL 3 ML NEB INHALATION SCH ×3 (08:33→18:42)
[2018-10-02] MEDS ORDERED: fentaNYL (PF) 50 MCG/ML 2 ML AMP ONE (11:27)
[2018-10-02] MEDS ORDERED: LIDOCAINE 1% INJ 10MG/ML (20 ML MDV) ONE (11:27)
[2018-10-02] MEDS ORDERED: VERAPAMIL 2.5 MG/ML 2 ML AMP ONE (11:27)
[2018-10-02] MEDS ORDERED: IV FLUID CONTINUATION 1,000 ML IV ONE (11:40)
[2018-10-02] MEDS ORDERED: fentaNYL (PF) 50 MCG/ML 2 ML AMP IV ONE (11:49)
[2018-10-02] MEDS ORDERED: LIDOCAINE 1% INJ 10MG/ML (20 ML MDV) SQ ONE (11:52)
[2018-10-02] MEDS ORDERED: METOPROLOL TARTRATE 5 MG/5 ML VIAL IVP ONE ×2 (11:54→11:56)
[2018-10-02] MEDS ORDERED: VERAPAMIL SYRINGE (5 MG/10 ML) INTRAARTER ONE (11:54)
[2018-10-02] MEDS ORDERED: HEPARIN SODIUM 1,000 UN/ML (10ML VL) IV ONE (11:56)
[2018-10-02] MEDS ORDERED: IOPAMIDOL-370 125ML BTL INJ ONE (12:16)
[2018-10-02 12:26] LABS: O2 Sat Blood Gas 60.9 %
[2018-10-02] MEDS ORDERED: RX INFO: IV CONTRAST WAS GIVEN 1 EACH MISC MISCELLANE PRN (12:26)
[2018-10-02 12:27] LABS: O2 Sat Blood Gas 53.8 %
[2018-10-02 12:30] LABS: O2 Sat Blood Gas 90.9 %
[2018-10-02] MEDS ORDERED: SODIUM CHLORIDE 0.9% 1,000 ML IV SCH (12:30)
[2018-10-02] MEDS: FUROSEMIDE 20 MG TAB PO SCH ×2 (13:06→21:27)
[2018-10-02] MEDS: SPIRONOLACTONE 25 MG TAB PO SCH (13:06)
--- NOTE | 2018-10-02 13:49 | CC ---
CARDIAC CATHETERIZATION REPORT Mr. Negron is a 72-year-old male with no prior documented history of cardiac disease who presented to the emergency room with symptoms of progressive dyspnea and was noted to be in atrial fibrillation with rapid ventricular response. Subsequently, his echocardiogram showed a severely impaired left ventricular systolic function. In view of that, recommendation made regarding cardiac catheterization. The procedures, risks and complication were discussed with the patient who is in full understanding and agreement. PROCEDURE: Patient was brought to the sleep lab technician in a fasting semi-sedated state after receiving fentanyl and Benadryl and achieving moderate conscious sedated state. Using Xylocaine anesthesia and Seldinger technique, a 6-Lithuanian sheath was introduced in the right radial artery. Subsequently, the antecubital venous access was exchanged to a 6-Lithuanian sheath over a wire. Subsequently, right heart catheterization was performed using [place]- Hermelindo catheter, multiple pressure and samples were obtained. Cardiac output by thermodilution was calculated. Following that, the selective right and left coronary angiography was performed using 5-Lithuanian 3.5 bend right and left Darlene catheter. Multiple views of the coronary artery including hemiaxial views were obtained. Following that, a 5-Lithuanian tight pigtail catheter was introduced in the left ventricle and a 30 degree NATARAJAN view of the left ventricle was obtained. Following that, catheter and sheath were removed. Hemostasis was obtained with deployment of a TR band and compression of the right antecubital area. There was no immediate complication. Patient is returned to his room in stable condition. Of note, the patient received 4500 units of intravenous heparin as well as intra-arterial verapamil. FINDINGS: CORONARIES: LEFT MAIN: This is a short-sized vessel, bifurcating into left circumflex, left anterior descending artery. Left main coronary artery has no evidence of high-grade stenosis. LEFT ANTERIOR DESCENDING ARTERY: This is a large-sized vessel, reaching to the apex, tapers down distally giving rise to two diagonal branches. The second one is large in caliber. The left anterior descending artery as well as branches have no evidence of obstructive coronary artery disease. LEFT CIRCUMFLEX: This is a large, nondominant vessel, giving rise to a large obtuse marginal branch. The left circumflex as well as branches have no evidence of obstructive coronary artery disease. RIGHT CORONARY ARTERY: This is a large dominant vessel, bifurcating distally into PDA and posterolateral segment branches. The right coronary artery, as well as branches, have no evidence of obstructive coronary artery disease. LEFT VENTRICULOGRAM: Left ventriculogram was performed in 30 degree NATARAJAN view and revealed a severely impaired left ventricular systolic function with ejection fraction of 15%-20% with global hypokinesis and 2 to 3+ mitral regurgitation. HEMODYNAMICS: Pulmonary artery saturation of 54%, pulmonary saturation 61%, arterial saturation 91%. Cardiac output by Arnoldo of 3.4 L/minute and by thermodilution of 5.5 L/minute. Pulmonary systolic pressure of 40 with a diastolic of 20 with a mean 24 mmHg. Pulmonary capillary wedge pressure, V-wave of 15 and mean of 15 mmHg. Right ventricle systolic pressure of 40 with an end-diastolic of 4. Right atrium, V-wave of 8 with a mean of 6 mmHg. Left ventricular end-diastolic pressure of 12-14 mmHg. There was no gradient across the aortic valve. IMPRESSION: 1. Normal coronary arteries. 2. Severely impaired left ventricular systolic function. 3. No significant pulmonary hypertension. RECOMMENDATION: In view of finding anatomy, his presentation is consistent with nonischemic cardiomyopathy. I would recommend to proceed with anticoagulation in addition to beta asia an SLADE inhibitor and attempt to cardiovert to restore his normal sinus rhythm. Those findings and recommendation were discussed with the patient his family and are in full understanding and agreement. Duration of procedure is 27 minutes. MMODL / IJN: [id number] /
[2018-10-02] MEDS: AMIODARONE 200 MG TAB PO SCH ×2 (13:54→21:30)
[2018-10-02 16:50] LABS: Glucose,Whole Blood 98 mg/dL (75-99)
[2018-10-02] MEDS ORDERED: RIVAROXABAN 20 MG TAB PO SCH (17:30)
[2018-10-02 20:52] LABS: Glucose,Whole Blood 162 mg/dL (75-99)
[2018-10-02] MEDS: MELATONIN 5 MG TABLET PO SCH (21:27)
[2018-10-03 06:11] LABS: Glucose,Whole Blood 119 mg/dL (75-99)
[2018-10-03 06:20] VITALS: RESP 18
[2018-10-03] MEDS: INSULIN ASPART (NovoLOG) 100 UNIT/ML VIAL SQ SCH ×2 (06:21→12:16)
[2018-10-03 07:09] LABS: Anion Gap 7 mmol/L; Blood Urea Nitrogen 18 mg/dL (9-20); Calcium 9.2 mg/dL (8.4-10.2); Carbon Dioxide 24 mmol/L (22-30); Chloride 106 mmol/L (98-107); Glucose 116 mg/dL (74-99); Potassium 4.4 mmol/L (3.5-5.1); Sodium 137 mmol/L (137-145)
--- NOTE | 2018-10-03 07:11 | PN ---
PROGRESS NOTE DATE OF SERVICE: 10/02/2018 PRESENTING COMPLAINT: Tired. INTERVAL HISTORY: Patient admitted with atrial flutter, CHF exacerbation. Heart rate is better controlled. Did undergo cardiac catheterization this morning showed normal coronaries. Lying in bed. Sister is visiting him from [place]. REVIEW OF SYSTEMS: Done for constitutional, cardiovascular, GI, pulmonary; relevant findings as above. CURRENT MEDICATIONS: Current medications are reviewed that include Cordarone, Lasix 20 mg b.i.d., Lopressor 50 mg t.i.d., Xarelto. PHYSICAL EXAMINATION: On examination, temperature 97.4, pulse 102, respiration 18, blood pressure 118/89, pulse ox 97% . GENERAL APPEARANCE: Lying in bed, awake. EYES: Pupils equal. Conjunctivae normal. NECK: JVD not raised. Mass not palpable. RESPIRATORY: Effort normal. LUNGS: Decreased breath sounds. CARDIOVASCULAR: Heart sounds irregular. No edema. ABDOMEN: Soft, nontender. Liver and spleen not palpable. PSYCHIATRY: Alert and oriented x3. Mood and affect normal. INVESTIGATIONS: Accu-Cheks are noted. ASSESSMENT: 1. New onset atrial flutter, rate uncontrolled on presentation. 2. Acute congestive heart failure exacerbation from systolic dysfunction, ejection fraction 20% to 25% from dilated cardiomyopathy. 3. Hyperlipidemia. 4. Chronic insomnia. 5. Anxiety, depression, not otherwise specified. 6. Normal coronary arteries per cardiac catheterization. PLAN: Care was discussed the patient. Encouraged to ambulate. Hopefully can be discharged tomorrow. MMDEISYL / IJN: [id number] /
[2018-10-03 08:03] VITALS: BP 101/69; PULSE 80; TEMP 98.2
[2018-10-03] MEDS: AMIODARONE 200 MG TAB PO SCH (08:11)
[2018-10-03] MEDS: LISINOPRIL 5 MG TAB PO SCH (08:11)
[2018-10-03] MEDS: METOPROLOL TARTRATE 50 MG TAB PO SCH (08:11)
[2018-10-03] MEDS: FUROSEMIDE 20 MG TAB PO SCH (08:11)
[2018-10-03] MEDS: SPIRONOLACTONE 25 MG TAB PO SCH (08:12)
[2018-10-03] MEDS: ALPRAZolam 0.25 MG TAB PO SCH (08:12)
[2018-10-03] MEDS: CITALOPRAM HYDROBROMIDE 20 MG TAB PO SCH (08:12)
[2018-10-03] MEDS: IPRATROPIUM-ALBUTEROL 3 ML NEB INHALATION SCH ×2 (08:45→13:26)
[2018-10-03] MEDS ORDERED: ATORVASTATIN 20 MG TAB PO SCH (09:00)
[2018-10-03] MEDS ORDERED: ASPIRIN 81 MG PO SCH (09:00)
--- NOTE | 2018-10-03 11:29 | PN ---
PROGRESS NOTE Mr. Negron is a 73-year-old male who presented with symptoms progressive dyspnea, was found to be in atrial fibrillation and had evidence of severe cardiomyopathy, underwent cardiac catheterization yesterday was found to have no obstructive disease with severely impaired left ventricular systolic function. He is feeling better today. He continues to have some dyspnea when he over exerts himself, but much better since admission. He denies any dizziness or palpitation. He denies any nausea. No cough. No fever. No wheezing. He continues to be at this time on Xarelto 20 mg daily, amiodarone 200 mg twice a day, Lipitor 20 mg daily, furosemide 20 mg twice a day, lisinopril 5 mg twice a day, metoprolol tartrate 50 mg 3 times a day and spironolactone 25 mg daily. PHYSICAL EXAMINATION: Blood pressure 101/60 with the heart rate in the 80s. LUNGS: Clear. HEART: Irregular, irregular. S1, S2. No S3. No rub. ABDOMEN: Soft, nontender. EXTREMITIES: No edema. Right radial pulse intact. LAB DATA: Lab data revealed a BUN and creatinine of 18 and 0.96. Potassium 4.4. IMPRESSION: 1. Atrial fibrillation persistent with controlled ventricular response, anticoagulated. 2. Severe nonischemic cardiomyopathy of unclear etiology. 3. Hyperlipidemia. RECOMMENDATION: From the cardiac standpoint, he should be able to be discharged home today and followed in 1 week. If he remains in atrial fibrillation, then I would recommend to proceed with NENO guided cardioversion. In the meantime, he will continue on the present therapy. MMODL / IJN: [id number] /
[2018-10-03 11:40] LABS: Glucose,Whole Blood 107 mg/dL (75-99)
[2018-10-03 14:03] VITALS: BMI 25.9
--- NOTE | 2018-10-04 07:36 | DS ---
DISCHARGE SUMMARY DATE OF ADMISSION: 09/28/2018 DATE OF DISCHARGE: 10/03/2018 FINAL DIAGNOSES: 1. New onset atrial flutter, rate uncontrolled, POA. 2. Acute congestive heart failure exacerbation from systolic dysfunction, ejection fraction 20% to 25% from dilated cardiomyopathy. 3. Hyperlipidemia. 4. Chronic insomnia. 5. Anxiety and depression, not otherwise specified. 6. Normal coronary arteries per cardiac catheterization. HOSPITAL COURSE: This patient presented with shortness of breath, heart fluttering, found to be in atrial fibrillation. Did undergo cardiac catheterization, showed normal coronaries. A 2D echo showed EF of 20%-25%. Doing better by the time of discharge. Care was discussed with the patient. CONSULTATION: Dr. Esquivel from Cardiology. PHYSICAL EXAMINATION: Temperature 98.2, pulse 80, respiration 18, blood pressure 101/69, pulse ox 99% ON room air. CARDIOVASCULAR: Heart sounds irregular. LUNGS: Clear. DISCHARGE MEDICATIONS: 1. Zocor 10 mg p.o. daily. 2. Xanax 0.25 p.o. daily. 3. Celexa 20 mg p.o. daily. 4. Melatonin 5 mg q.h.s. 5. Albuterol 1 puff q.4 to 6 p.r.n. 6. Cordarone 200 mg twice a day for 7 days then 200 mg a day. 7. Lasix 20 mg p.o. b.i.d. 8. Atrovent HFA 2 puffs q.i.d. 9. Zestril 5 mg p.o. b.i.d. 10.Lopressor 50 mg p.o. t.i.d. 11.Xarelto 20 mg with supper. 12.Aldactone 25 mg p.o. daily. Follow up with Dr. Esquivel on 10/12/2018. Follow up with Dr. Rojas on 10/17/2018. MMODL / IJN: [id number] /
== END 2018-10-03 15:02 | disposition home or self-care (01) | DRG 286 ==
LOC: EC 08:48 → 3SCARD 12:28
PROVIDERS: ADMIT Hospitalist; ATTEND Hospitalist
PROC: B2111ZZ Fluoroscopy of Multiple Coronary Arteries using Low Osmolar Contrast (ICD-10-PCS; 2018-10-02)
PROC: B2151ZZ Fluoroscopy of Left Heart using Low Osmolar Contrast (ICD-10-PCS; 2018-10-02)
PROC: 4A023N6 Measurement of Cardiac Sampling and Pressure, Right Heart, Percutaneous Approach (ICD-10-PCS; principal; 2018-10-02 11:15)
DX: I48.1 Persistent atrial fibrillation (principal); I50.23 Acute on chronic systolic (congestive) heart failure; I08.1 Rheumatic disorders of both mitral and tricuspid valves; I42.0 Dilated cardiomyopathy; E11.9 Type 2 diabetes mellitus without complications; I48.92 Unspecified atrial flutter; J98.01 Acute bronchospasm; E78.5 Hyperlipidemia, unspecified; F51.04 Psychophysiologic insomnia; F41.9 Anxiety disorder, unspecified; F32.9 Major depressive disorder, single episode, unspecified; Z79.899 Other long term (current) drug therapy; Z87.891 Personal history of nicotine dependence; Z86.010 Personal history of colon polyps; Z98.42 Cataract extraction status, left eye; Z98.41 Cataract extraction status, right eye; Z98.890 Other specified postprocedural states
CPT/HCPCS: 36415; 71046; 71275; 80048; 80053; 82550; 82810; 83036; 83735; 83880; 84443; 84484; 85018; 85025; 85379; 85610; 85730; 93005; 93306; 93460; 94640; 94760; 96365; 96366; 96375; 96376; 99291

== ENCOUNTER 2018-10-24 08:28 | Day surgery (SDC) | payer MEDICARE ==
[2018-10-21 14:28] VITALS: BMI 25.9
[2018-10-24] MEDS ORDERED: SODIUM CHLORIDE 0.9% 1,000 ML IV SCH ×2 (08:44→11:15)
[2018-10-24] MEDS ORDERED: LACTATED RINGERS 1,000 ML IV SCH (08:44)
[2018-10-24 08:50] VITALS: TEMP 98.2
[2018-10-24] MEDS: BENZOCAINE SPRAY 1 CAN MUCOUS MEM ONE ×2 (10:28→10:33)
[2018-10-24] MEDS ORDERED: SODIUM CHLORIDE 0.9% 1,000 ML IV ONE ×2 (10:32)
[2018-10-24] MEDS ORDERED: LIDOCAINE 1% INJ 10MG/ML (20 ML MDV) ONE (10:35)
[2018-10-24] MEDS ORDERED: PROPOFOL 10 MG/ML 20 ML VIAL IV ONE (10:35)
[2018-10-24] MEDS ORDERED: MELATONIN 5 MG TABLET PO PRN (11:01)
[2018-10-24] MEDS ORDERED: ALPRAZolam 0.25 MG TAB PO PRN (11:01)
[2018-10-24 11:16] VITALS: RESP 16
--- NOTE | 2018-10-24 11:22 | CE ---
CARDIAC ELECTROPHYSIOLOGY REPORT CARDIOVERSION PROCEDURE NOTE: INDICATION: Atrial fibrillation. PROCEDURE: After explaining the procedure to the patient, its risks and the complications, after performing transesophageal echocardiogram and obtaining sedated state, a synchronized biphasic cardioversion using 200 joules was performed with mandaen of normal sinus rhythm. There was no immediate complication. ANGE / REZA: [id number] /
[2018-10-24 11:30] VITALS: PULSE 50
--- NOTE | 2018-10-24 11:34 | ECHOT ---
TRANSESOPHAGEAL ECHOCARDIOGRAM INDICATION: Atrial fibrillation. PROCEDURE: After explaining the procedure to the patient, its risks and complication were discussed with the patient, the throat was sprayed with Cetacaine. His blood pressure, heart rate, O2 saturation were monitored. He received sedation per anesthesia department. The probe was introduced in the esophagus without difficulties. Following that, images were obtained. Following that, the probe was removed, there was no immediate complication. FINDINGS: Right atrial size is dilated. Left atrial appendage is normal, left ventricular size is normal. There is severe global hypokinesis. The estimated ejection fraction is 20%- 25% with global hypokinesis. The aortic valve, mitral valve and tricuspid valve are normal. No pericardial effusion was noted. Contrast bubble study revealed no evidence of shunting across the interatrial septum. The descending thoracic aorta appears to be normal. Doppler pulse wave and color Doppler obtained revealed mild to moderate mitral with mild trace pulmonic regurgitation. There was no shunting by color Doppler study. Mild tricuspid regurgitation was noted. CONCLUSION: 1. Biatrial enlargement with normal appearance left atrial appendage. 2. Severely impaired left ventricular systolic function with global hypokinesis. 3. Mild to moderate mitral with mild tricuspid regurgitation. 4. No shunting across the interatrial septum. 5. Normal appearance of the descending thoracic aorta. MMODL / IJN: [id number] /
[2018-10-24 13:05] VITALS: BP 110/72
[2018-10-24] MEDS ORDERED: METOPROLOL TARTRATE 50 MG TAB PO SCH (16:00)
[2018-10-24] MEDS ORDERED: IPRATROPIUM 0.5 MG/2.5 ML NEBU INHALATION SCH (16:00)
[2018-10-24] MEDS ORDERED: RIVAROXABAN 20 MG TAB PO SCH (17:30)
[2018-10-24] MEDS ORDERED: LISINOPRIL 5 MG TAB PO SCH (21:00)
[2018-10-25] MEDS ORDERED: SPIRONOLACTONE 25 MG TAB PO SCH (09:00)
[2018-10-25] MEDS ORDERED: CITALOPRAM HYDROBROMIDE 20 MG TAB PO SCH (09:00)
[2018-10-25] MEDS ORDERED: FUROSEMIDE 20 MG TAB PO SCH (09:00)
[2018-10-25] MEDS ORDERED: ATORVASTATIN 10 MG TAB PO SCH (09:00)
[2018-10-25] MEDS ORDERED: AMIODARONE 200 MG TAB PO SCH (09:00)
== END 2018-10-24 13:09 | disposition home or self-care (01) ==
LOC: CATHCVL 08:28
PROVIDERS: ATTEND Internal Medicine Interventional Cardiology
DX: I48.1 Persistent atrial fibrillation (principal); I34.0 Nonrheumatic mitral (valve) insufficiency; I37.1 Nonrheumatic pulmonary valve insufficiency; Z79.01 Long term (current) use of anticoagulants; I42.8 Other cardiomyopathies; E78.2 Mixed hyperlipidemia; E11.9 Type 2 diabetes mellitus without complications; Z82.49 Family history of ischemic heart disease and other diseases of the circulatory system; I11.0 Hypertensive heart disease with heart failure; I50.9 Heart failure, unspecified; Z87.891 Personal history of nicotine dependence; Z79.899 Other long term (current) drug therapy
CPT/HCPCS: 93312; 93320; 93325; 92960; J2001; J2704

== ENCOUNTER → 2020-05-18 | Outpatient (CLI) | payer MEDICARE ==
--- NOTE | 2020-05-27 14:13 | EM ---
EVENT MONITOR A 72-hour monitor. INDICATION: Cardiac arrhythmia. The baseline rhythm is sinus mechanism with a minimum heart rate of 45 beats per minute, max 106 beats per minute and average heart rate of 65 beats per minute. Ventricular ectopic events presented in less than 1% of the total beat count and presented mainly as an isolated PVCs. Supraventricular ectopic rhythm presented in less than 1% of the total beat count and there was a short episode of atrial tachycardia noted. No evidence of any significant sinus pause or sinus arrest seen. CONCLUSION: 1. Sinus rhythm as a baseline mechanism. 2. Rare ventricular ectopic events. Ventricular ectopic events presented as PVCs as well as presented in bigeminy and trigeminy and couplets. 3. Rare supraventricular ectopic events. The patient did have one short episode of atrial tachycardia. 4. No evidence of sinus pause or sinus arrest. MMODL / IJN: [id number] /
== END | disposition home or self-care (01) ==
LOC: RADECHMAIN 11:46
PROVIDERS: ATTEND Family Medicine
DX: I49.3 Ventricular premature depolarization (principal); I47.1 Supraventricular tachycardia; R00.8 Other abnormalities of heart beat
CPT/HCPCS: 93225; 93226

== ENCOUNTER 2021-11-25 09:05 | Day surgery (SDC) | payer MEDICARE ==
[~2021-11-25 09:05] MED LIST: LACTATED RINGERS 1,000 ML IV SCH
[2021-11-25 09:40] VITALS: TEMP 97.3
[2021-11-25] MEDS ORDERED: LACTATED RINGERS 1,000 ML IV ONE (09:43)
[2021-11-25] MEDS ORDERED: PROPOFOL 10 MG/ML 20 ML VIAL IV ONE (10:54)
--- NOTE | 2021-11-25 11:11 | P.PCN ---
Date of Procedure: 11/25/21 Procedure(s) Performed: BRIEF HISTORY: Patient is a 76-year-old pleasant white male scheduled for an elective colonoscopy as a part of evaluation of prior history of colon polyps. Last colonoscopy was 6 years ago. PROCEDURE PERFORMED: Colonoscopy. PREOPERATIVE DIAGNOSIS: History of colon polyps. IV sedation per Anesthesia. PROCEDURE: After informed consent was obtained, the patient, was brought into the endoscopy unit. IV sedation was administered by Anesthesia under continuous monitoring. Digital rectal examination was normal. Initially the Olympus CF-160 flexible video colonoscope was then inserted in the rectum, gradually advanced into the cecum without any difficulty. Careful examination was performed as the scope was gradually being withdrawn. Ileocecal valve and the appendiceal orifice were visualized and appeared normal. Prep was excellent. Mucosa of the cecum, ascending colon, transverse colon, descending colon, sigmoid colon, and rectum appeared normal. Scattered sigmoid diverticulosis Retroflexion was performed in the rectum and small internal hemorrhoids were seen. The patient tolerated the procedure well. IMPRESSION: Normal-appearing colon from rectum to cecum . RECOMMENDATIONS: Findings of this examination were discussed with the patient as well as his family. He was advised to be a high-fiber diet and take fiber supplements a regular basis. Recommend repeat colonoscopy in 5 is removed because of the prior history of colon polyps..
[2021-11-25 12:01] VITALS: BP 112/70; PULSE 58; RESP 16
== END 2021-11-25 11:55 | disposition home or self-care (01) ==
LOC: ORWHC2ENDO 09:05
PROVIDERS: ATTEND Internal Medicine Gastroenterology
DX: K57.30 Diverticulosis of large intestine without perforation or abscess without bleeding (principal); K64.8 Other hemorrhoids; Z86.010 Personal history of colon polyps; I11.0 Hypertensive heart disease with heart failure; I50.9 Heart failure, unspecified; I48.91 Unspecified atrial fibrillation; E78.5 Hyperlipidemia, unspecified; Z79.01 Long term (current) use of anticoagulants; Z79.899 Other long term (current) drug therapy; Z87.891 Personal history of nicotine dependence
CPT/HCPCS: 45378; J2704

== ENCOUNTER 2023-11-09 10:35 | Emergency (ER) | payer MEDICARE ==
[2023-11-09 10:46] VITALS: RESP 18
--- NOTE | 2023-11-09 11:14 | ED ---
General Adult HPI - General Chief complaint: Fall Stated complaint: Fall/Head Injury Time Seen by Provider: 11/09/23 10:49 Source: patient, RN notes reviewed Mode of arrival: ambulatory Limitations: no limitations - History of Present Illness Initial comments: 78 year old male presents to the emergency department for evaluation of head injury. Patient states that Sunday he had a trip and fall causing him to hit his head on the refrigerator. He states that he had some bruising to his forehead at that time. He reports that last night he noticed some discoloration around his eyes. He states that this morning it had gotten much worse causing him to present to urgent care. He denies loss of consciousness at the time of the event. Denies significant headache, vomiting. - Related Data Home Medications Medication Instructions Recorded Confirmed Simvastatin [Zocor] 10 mg PO HS 04/13/16 11/09/23 ALPRAZolam [Xanax] 0.25 mg PO Q6H PRN 09/28/18 11/09/23 lisinopriL 2.5 mg PO DAILY 11/24/21 11/09/23 Levothyroxine Sodium [Synthroid] 75 mcg PO DAILY 11/09/23 11/09/23 Metoprolol Tartrate [Lopressor] 25 mg PO BID 11/09/23 11/09/23 Rivaroxaban [Xarelto] 20 mg PO HS 11/09/23 11/09/23 Allergies Allergy/AdvReac Type Severity Reaction Status Date / Time No Known Allergies Allergy Verified 11/09/23 13:03 Review of Systems ROS Statement: Those systems with pertinent positive or pertinent negative responses have been documented in the HPI. ROS Other: All systems not noted in ROS Statement are negative. Past Medical History Past Medical History: Atrial Fibrillation, Heart Failure, Hyperlipidemia, Hypertension Additional Past Medical History / Comment(s): POSITIVE FOR COVID OCTOBER 06. Prior GIB post colonoscopy and hx of polyps. History of Any Multi-Drug Resistant Organisms: None Reported Past Surgical History: Hernia Repair, Orthopedic Surgery Additional Past Surgical History / Comment(s): Right knee scope x 2, umbilical hernia repair, kinjal cataract. Right eye retina tear repair. lumpectomy rt side of chest-benign, colonoscopy Past Anesthesia/Blood Transfusion Reactions: No Reported Reaction Past Psychological History: No Psychological Hx Reported Smoking Status: Former smoker Past Alcohol Use History: None Reported Past Drug Use History: None Reported - Past Family History Mother Family Medical History: No Reported History General Exam Limitations: no limitations General appearance: alert, in no apparent distress Head exam: Present: normocephalic, other (ecchymosis to forehead, periorbital ecchymosis bilaterally) Eye exam: Present: PERRL, EOMI, other (periorbital ecchymosis bilaterally). Absent: periorbital tenderness ENT exam: Present: normal exam, mucous membranes moist, TM's normal bilaterally, normal external ear exam Neck exam: Present: normal inspection. Absent: tenderness, meningismus, lymphadenopathy Respiratory exam: Present: normal lung sounds bilaterally. Absent: respiratory distress, wheezes, rales, rhonchi, stridor Cardiovascular Exam: Present: regular rate, normal rhythm, normal heart sounds. Absent: systolic murmur, diastolic murmur, rubs, gallop, clicks Extremities exam: Present: normal inspection, full ROM, normal capillary refill. Absent: tenderness, pedal edema, joint swelling, calf tenderness Back exam: Present: normal inspection Neurological exam: Present: alert, oriented X3, CN II-XII intact, normal gait, other (normal finger to nose, heel to mello). Absent: motor sensory deficit Psychiatric exam: Present: normal affect, normal mood Skin exam: Present: warm, dry, intact, other (ecchymosis). Absent: normal color Course Vital Signs 11/09/23 11/09/23 10:40 13:18 Temperature 97.7 F 98 F Pulse Rate 68 65 Respiratory 18 18 Rate Blood Pressure 154/83 135/71 O2 Sat by Pulse 98 98 Oximetry Medical Decision Making - Medical Decision Making Was pt. sent in by a medical professional or institution (, PA, COOPER APPRENTICE, urgent care, hospital, or fdc...) When possible be specific @ -No Did you speak to anyone other than the patient for history (EMS, parent, family, police, friend...)? What history was obtained from this source @ -No Did you review nursing and triage notes (agree or disagree)? Why? @ -I reviewed and agree with nursing and triage notes Were old charts reviewed (outside hosp., previous admission, EMS record, old EKG, old radiological studies, urgent care reports/EKG's, fdc records)? Report findings @ -No old charts were reviewed Differential Diagnosis (chest pain, altered mental status, abdominal pain women, abdominal pain men, vaginal bleeding, weakness, fever, dyspnea, syncope, headache, dizziness, GI bleed, back pain, seizure, CVA, palpatations, mental health, musculoskeletal)? @ -Head injury, basilar skull fracture, intracranial hemorrhage, this list is not all inclusive EKG interpreted by me (3pts min.). @ -None X-rays interpreted by me (1pt min.). @ -None done CT interpreted by me (1pt min.). @ -CT brain and facial bones shows no evidence of acute fracture, no acute intracranial process U/S interpreted by me (1pt. min.). @ -None done What testing was considered but not performed or refused? (CT, X-rays, U/S, labs)? Why? @ -None What meds were considered but not given or refused? Why? @ -None Did you discuss the management of the patient with other professionals (professionals i.e. , PA, COOPER APPRENTICE, lab, RT, psych nurse, director of social media marketing, family and consumer sciences professor, teacher, financial aids officer, outsole caser)? Give summary @ -No Was smoking cessation discussed for >3mins.? @ -No Was critical care preformed (if so, how long)? @ -No Were there social determinants of health that impacted care today? How? (Homele ssness, low income, unemployed, alcoholism, drug addiction, transportation, low edu. Level, literacy, decrease access to med. care, halfway, rehab)? @ -No Was there de-escalation of care discussed even if they declined (Discuss DNR or withdrawal of care, Hospice)? DNR status @ -No What co-morbidities impacted this encounter? (DM, HTN, Smoking, COPD, CAD, Cancer, CVA, ARF, Chemo, Hep., AIDS, mental health diagnosis, sleep apnea, morbid obesity)? @ -None Was patient admitted / discharged? Hospital course, mention meds given and route, prescriptions, significant lab abnormalities, going to OR and other pertinent info. @ -Discharge. Patient presented to the emergency department for evaluation of fall with head injury occurring [address] brain and facial bones were obtained which shows no evidence of acute process, no acute fracture. Patient advised on these findings and strict follow-up with his PCP. Patient is understanding agreeable plan. Patient stable at time of discharge. Case discussed with Dr. Samson. Undiagnosed new problem with uncertain prognosis? @ -No Drug Therapy requiring intensive monitoring for toxicity (Heparin, Nitro, Insulin, Cardizem)? @ -No Were any procedures done? @ -No Diagnosis/symptom? @ -Head injury Acute, or Chronic, or Acute on Chronic? @ -acute Uncomplicated (without systemic symptoms) or Complicated (systemic symptoms)? @ -uncomplicated Side effects of treatment? @ -No Exacerbation, Progression, or Severe Exacerbation? @ -No Poses a threat to life or bodily function? How? (Chest pain, [place], [place], pneumonia, PE, COPD, DKA, ARF, appy, cholecystitis, CVA, Diverticulitis, Homicidal, Suicidal, threat to staff... and all critical care pts) @ -No Disposition Clinical Impression: Fall, Head injury Disposition: HOME SELF-CARE Condition: Stable Instructions (If sedation given, give patient instructions): Fall Prevention (ED) Additional Instructions: Please follow up with your primary care provider. Return to the emergency department for new or worsening symptoms. Is patient prescribed a controlled substance at d/c from ED?: No Referrals: Howard Rojas MD [Primary Care Provider] - 1-2 days
--- NOTE | 2023-11-09 12:24 | CT ---
EXAMINATION TYPE: CT brain wendy pugh con DATE OF EXAM: 11/09/2023 COMPARISON: July 01, 2018 HISTORY: bilateral eye bruising post fall on Sunday night CT DLP: 1022.[address] of the brain was performed. The ventricles, basal cisterns and sulci overlying the cerebral convexities demonstrate mild enlargem ent. There is no evidence for intracranial hemorrhage or sulcal effacement. There is decreased attenuatio n about the periventricular white matter and deep white matter of both cerebral hemispheres, compatib le with chronic small vessel ischemia. No mass effects are seen. If symptoms persist consider MRI. Osseous calvarium is intact. IMPRESSION: 1. Age related atrophic and chronic small vessel ischemic change without acute intracranial process seen at this time. CT Cervical Spine: Unenhanced CT of the cervical spine was performed with bone and soft tissue window settings submitted . Coronal and sagittal reconstruction is obtained. There is normal alignment and prevertebral soft tissues. No evidence for acute cervical fracture . Scattered degenerative disc disease and spondylosis. Biapical scarring. IMPRESSION: 1. No evidence for acute fracture or subluxation of the cervical spine.
--- NOTE | 2023-11-09 12:26 | CT ---
EXAMINATION TYPE: CT facial bones wo con DATE OF EXAM: 11/09/2023 COMPARISON: 9 HISTORY: bilateral eye bruising post fall on Sunday night CT DLP: 1022.[address] of the facial bones was performed in the axial and coronal planes. Bone and soft tissu e window settings are submitted. No significant soft tissue swelling is appreciated. I do not see evidence for displaced facial bone fracture or depressed facial bone fracture. The globes are intact. Mucous retention cyst or polyp left maxillary sinus Paranasal sinuses are well-aerated. IMPRESSION: 1. No evidence for depressed or displaced facial bone fracture.
[2023-11-09 13:20] VITALS: BP 135/71; PULSE 65; TEMP 98
== END 2023-11-09 13:28 | disposition home or self-care (01) ==
LOC: EC 10:35
DX: S05.12XA Contusion of eyeball and orbital tissues, left eye, initial encounter (principal); S05.11XA Contusion of eyeball and orbital tissues, right eye, initial encounter; Z87.891 Personal history of nicotine dependence; Z86.16 Personal history of COVID-19; W01.198A Fall on same level from slipping, tripping and stumbling with subsequent striking against other object, initial encounter
CPT/HCPCS: 70450; 70486; 72125; 99283